=== PATIENT | male | born 1955 | race African-American/Black ===

== ENCOUNTER 2021-02-23 12:14 | Inpatient (IN) ==
[2021-02-23] MEDS ORDERED: ONDANSETRON 4 MG/2 ML VIAL IV PRN (21:47)
[2021-02-23] MEDS ORDERED: ACETAMINOPHEN 325 MG TABLET PO PRN (21:47)
[2021-02-23] MEDS ORDERED: DEXTROSE 50% 25 GM/50 ML VIAL IV PRN (21:47)
[2021-02-23] MEDS ORDERED: DOCUSATE SODIUM 100 MG CAPSULE PO PRN (21:47)
[2021-02-23] MEDS ORDERED: GLUCAGON 1 MG VIAL IM PRN (21:47)
[2021-02-23] MEDS ORDERED: ALBUTEROL/IPRATROPIUM 3 ML NEB RESP TX PRN (21:47)
[2021-02-23 21:50] LABS: Hematocrit 24.7 VOL% (42.0-52.0); Hemoglobin 8.5 GM/DL (14.0-18.0); Immature Granulocytes % 0.5 %; Immature Granulocytes Absolute 0.03 #; Lymphocytes # 0.6 10*3/uL (1.4-4.0); Mean Corpuscular HGB Conc 34.4 GM/DL (32-36); Mean Corpuscular Volume 100.8 FL (87-102); Mean Platelet Volume 10.7 FL (9.6-12.0); Monocytes % 5.9 % (1.7-12.7); Neutrophils % 83.6 % (38.7-73.9); Platelet Count 120 T/CUMM (130-400); Red Blood Count 2.45 MC/CUMM (3.8-5.5); Red Cell Distribution Width 16.5 % (9.3-17.3); White Blood Count 6.2 T/CUMM (4-12)
[2021-02-23 22:02] LABS: PT Patient Result 31.3 SECS (10.5-12.0); Partial Thromboplastin Time 33.9 SECS (23.9-33.8)
[2021-02-23 22:12] LABS: Albumin 2.2 G/DL (3.4-5.0); Bilirubin,Total 1.2 MG/DL (0.2-1.0); Calcium 8.4 MG/DL (8.5-10.1); Osmolality,Calculated 285.7 MOS/KG (273-304); Potassium 3.8 MMOL/L (3.5-5.1); Total Protein 5.4 G/DL (6.4-8.2)
[2021-02-24] MEDS ORDERED: FUROSEMIDE 40 MG/4 ML VIAL IV ONE (02:56)
[2021-02-24] MEDS ORDERED: FUROSEMIDE 40 MG/4 ML VIAL IV SCH (03:00)
[2021-02-24] MEDS ORDERED: LEVALBUTEROL 1.25 MG/3 ML NEB RESP TX ONE (05:00)
[2021-02-24 05:19] LABS: Eosinophils % 0.2 % (0.00-10.9); Hemoglobin 8.6 GM/DL (14.0-18.0); Immature Granulocytes % 0.4 %; Immature Granulocytes Absolute 0.02 #; Lymphocytes # 0.8 10*3/uL (1.4-4.0); Lymphocytes % 13.8 % (21.2-54.2); Mean Corpuscular HGB Conc 34.4 GM/DL (32-36); Mean Corpuscular Volume 100.8 FL (87-102); Monocytes % 5.7 % (1.7-12.7); Neutrophils % 79.9 % (38.7-73.9); Platelet Count 133 T/CUMM (130-400); Red Blood Count 2.48 MC/CUMM (3.8-5.5); Red Cell Distribution Width 16.7 % (9.3-17.3); White Blood Count 5.6 T/CUMM (4-12)
[2021-02-24 05:52] LABS: Calcium 8.5 MG/DL (8.5-10.1); Potassium 3.6 MMOL/L (3.5-5.1); Risk Ratio 1.67; Thyroid Stimulating Hormone 2.19 uIU/ml (0.358-3.74); VLDL CHOLESTEROL 9.6 MG/DL
[2021-02-24 05:53] LABS: Lymphocytes 10 % (20-55); Macrocytosis 1+; Microcytosis Slight; Platelet Estimate Normal; Segmented Neutrophils 89 % (50-85); Total Cells Counted 100
[2021-02-24] MEDS: methylPREDNISolone SOD SUC 40 MG/1 ML VIAL IV SCH ×2 (07:13→18:16)
[2021-02-24] MEDS: LEVALBUTEROL 1.25 MG/3 ML NEB RESP TX SCH ×4 (07:46→20:48)
[2021-02-24] MEDS: FOLIC ACID 1 MG TABLET PO SCH (08:40)
[2021-02-24] MEDS: APIXABAN 5 MG TABLET PO SCH ×2 (08:40→21:13)
[2021-02-24] MEDS: MULTIVITAMIN (BEROCCA) TABLET PO SCH (08:40)
[2021-02-24] MEDS: THIAMINE 100 MG TABLET PO SCH (08:40)
[2021-02-24] MEDS: AMIODARONE 200 MG TABLET PO SCH ×2 (08:40→21:13)
[2021-02-24] MEDS: carvediloL 3.125 MG TABLET PO SCH ×2 (08:40→21:13)
[2021-02-24] MEDS: PANTOPRAZOLE 40 MG TABLET PO SCH (08:40)
[2021-02-24] MEDS: BUDESONIDE/FORMOTEROL 160-4.5 INHALER 6 GM INH SCH ×2 (08:42→21:14)
[2021-02-24] MEDS ORDERED: POTASSIUM CHLORIDE 10 MEQ TABLET PO ONE (10:33)
[2021-02-24 16:20] LABS: Hepatitis B Core IgM Quant 0.57 Index; Hepatitis B Surface Ag Quant < 0.10 Index; Hepatitis B Surface Ag Result Non-Reactive (NonReactive); Hepatitis C Virus Ab Quant 0.08 Index; Hepatitis C Virus Ab Result Non-Reactive (NonReactive)
[2021-02-24] MEDS: cefTRIAXone 1,000 MG in SODIUM CHLORIDE 0.9% 100 ML IV SCH (16:46)
[2021-02-24] MEDS: DOXYCYCLINE HYCLATE 100 MG CAPSULE PO SCH ×2 (16:46→21:13)
[2021-02-24] MEDS: FUROSEMIDE 40 MG/4 ML VIAL IV SCH (16:46)
[2021-02-24] MEDS: SKIN HEALING OINT (AQUAPHOR) 50 GM TUBE TOP SCH (16:46)
[2021-02-25] MEDS: LEVALBUTEROL 1.25 MG/3 ML NEB RESP TX SCH ×7 (00:21→23:40)
[2021-02-25] MEDS: LORazepam 2 MG/1 ML VIAL IV PRN ×2 (01:02→05:16)
[2021-02-25 06:41] LABS: Hematocrit 26.2 VOL% (42.0-52.0); Hemoglobin 9.1 GM/DL (14.0-18.0); Immature Granulocytes % 0.5 %; Immature Granulocytes Absolute 0.02 #; Lymphocytes # 0.4 10*3/uL (1.4-4.0); Lymphocytes % 9.4 % (21.2-54.2); Mean Corpuscular HGB Conc 34.7 GM/DL (32-36); Mean Corpuscular Volume 101.2 FL (87-102); Mean Platelet Volume 11.3 FL (9.6-12.0); Monocytes % 2.8 % (1.7-12.7); Neutrophils % 87.3 % (38.7-73.9); Platelet Count 111 T/CUMM (130-400); Red Blood Count 2.59 MC/CUMM (3.8-5.5); Red Cell Distribution Width 16.8 % (9.3-17.3); White Blood Count 3.9 T/CUMM (4-12)
[2021-02-25] MEDS: methylPREDNISolone SOD SUC 40 MG/1 ML VIAL IV SCH ×2 (06:43→18:00)
[2021-02-25 06:46] LABS: Albumin 2.2 G/DL (3.4-5.0); Bilirubin,Total 1.5 MG/DL (0.2-1.0); Calcium 8.5 MG/DL (8.5-10.1); Osmolality,Calculated 284.1 MOS/KG (273-304); Potassium 4.4 MMOL/L (3.5-5.1); Total Protein 5.8 G/DL (6.4-8.2)
[2021-02-25 06:47] LABS: Potassium 4.4 MMOL/L (3.5-5.1)
[2021-02-25 06:49] LABS: Calcium 8.4 MG/DL (8.5-10.1)
[2021-02-25 06:50] LABS: Osmolality,Calculated 283.2 MOS/KG (273-304)
[2021-02-25] MEDS: carvediloL 3.125 MG TABLET PO SCH ×2 (09:22→20:14)
[2021-02-25] MEDS: AMIODARONE 200 MG TABLET PO SCH ×2 (09:22→20:13)
[2021-02-25] MEDS: MULTIVITAMIN (BEROCCA) TABLET PO SCH (09:22)
[2021-02-25] MEDS: PANTOPRAZOLE 40 MG TABLET PO SCH (09:24)
[2021-02-25] MEDS: FOLIC ACID 1 MG TABLET PO SCH (09:24)
[2021-02-25] MEDS: BUDESONIDE/FORMOTEROL 160-4.5 INHALER 6 GM INH SCH ×2 (09:24→20:14)
[2021-02-25] MEDS: APIXABAN 5 MG TABLET PO SCH ×2 (09:24→20:14)
[2021-02-25] MEDS: THIAMINE 100 MG TABLET PO SCH (09:25)
[2021-02-25] MEDS: FUROSEMIDE 40 MG/4 ML VIAL IV SCH ×2 (09:27→18:08)
[2021-02-25] MEDS: SKIN HEALING OINT (AQUAPHOR) 50 GM TUBE TOP SCH (09:27)
[2021-02-25] MEDS: DOXYCYCLINE HYCLATE 100 MG CAPSULE PO SCH ×2 (09:27→20:14)
[2021-02-25] MEDS: cefTRIAXone 1,000 MG in SODIUM CHLORIDE 0.9% 100 ML IV SCH (18:12)
[2021-02-26] MEDS: LEVALBUTEROL 1.25 MG/3 ML NEB RESP TX SCH ×5 (02:50→18:40)
[2021-02-26] MEDS: methylPREDNISolone SOD SUC 40 MG/1 ML VIAL IV SCH ×2 (05:30→17:52)
[2021-02-26 06:40] LABS: Hematocrit 24.6 VOL% (42.0-52.0); Hemoglobin 8.8 GM/DL (14.0-18.0); Immature Granulocytes % 0.3 %; Immature Granulocytes Absolute 0.02 #; Lymphocytes # 0.4 10*3/uL (1.4-4.0); Lymphocytes % 6.2 % (21.2-54.2); Mean Corpuscular HGB Conc 35.8 GM/DL (32-36); Mean Corpuscular Volume 97.2 FL (87-102); Mean Platelet Volume 11.8 FL (9.6-12.0); Monocytes % 3.7 % (1.7-12.7); Neutrophils % 89.8 % (38.7-73.9); Platelet Count 139 T/CUMM (130-400); Red Blood Count 2.53 MC/CUMM (3.8-5.5); Red Cell Distribution Width 16.6 % (9.3-17.3); White Blood Count 6.1 T/CUMM (4-12)
[2021-02-26 06:56] LABS: Calcium 8.6 MG/DL (8.5-10.1); Osmolality,Calculated 287.4 MOS/KG (273-304); Potassium 4.6 MMOL/L (3.5-5.1)
[2021-02-26 07:17] LABS: Band Neutrophils 3 % (0-10); Eosinophils 1 % (0-10); Lymphocytes 6 % (20-55); Platelet Estimate Adequate; Segmented Neutrophils 87 % (50-85); Total Cells Counted 100
[2021-02-26 07:18] LABS: Burr Cells Few; Macrocytosis 2+; Target Cells Few
[2021-02-26] MEDS: SKIN HEALING OINT (AQUAPHOR) 50 GM TUBE TOP SCH (09:18)
[2021-02-26] MEDS: FUROSEMIDE 40 MG/4 ML VIAL IV SCH ×2 (09:18→17:51)
[2021-02-26] MEDS: PANTOPRAZOLE 40 MG TABLET PO SCH (09:19)
[2021-02-26] MEDS: APIXABAN 5 MG TABLET PO SCH (09:19)
[2021-02-26] MEDS: FOLIC ACID 1 MG TABLET PO SCH (09:19)
[2021-02-26] MEDS: AMIODARONE 200 MG TABLET PO SCH (09:19)
[2021-02-26] MEDS: MULTIVITAMIN (BEROCCA) TABLET PO SCH (09:19)
[2021-02-26] MEDS: carvediloL 3.125 MG TABLET PO SCH (09:19)
[2021-02-26] MEDS: BUDESONIDE/FORMOTEROL 160-4.5 INHALER 6 GM INH SCH (09:19)
[2021-02-26] MEDS: THIAMINE 100 MG TABLET PO SCH (09:20)
[2021-02-26] MEDS: DOXYCYCLINE HYCLATE 100 MG CAPSULE PO SCH (09:20)
[2021-02-26 15:46] VITALS: BP 89/59
[2021-02-26] MEDS: cefTRIAXone 1,000 MG in SODIUM CHLORIDE 0.9% 100 ML IV SCH (17:51)
== END 2021-02-26 20:00 | disposition hospice, home (50) | DRG 291 ==
LOC: N.TELES 19:59 → SUATTDRO 19:59
PROVIDERS: ADMIT Internal Medicine; ATTEND Family Medicine